=== PATIENT | male | born 1955 | race Caucasian/White ===

== ENCOUNTER → 2020-03-13 | Outpatient (CLI) | payer OTHER ==
[~2020-03-13] MED LIST: COVID-19 VACC, MRNA(MODERNA)/PF 100 MCG/0.5 ML VIAL IM ONE
== END ==
LOC: VACCPMC 08:00
DX: Z23 Encounter for immunization (principal); Z20.822 Contact with and (suspected) exposure to COVID-19

== ENCOUNTER → 2020-04-10 | Outpatient (CLI) | payer OTHER | END | DRG 951 | LOC: VACCPMC 08:41 | DX: Z23 Encounter for immunization (principal); Z20.822 Contact with and (suspected) exposure to COVID-19 | CPT/HCPCS: 0012A; 91301 ==

== ENCOUNTER 2021-05-28 13:20 | Emergency (ER) | payer OTHER ==
[~2021-05-28] VITALS: Ht 175.3 cm; Wt 93.0 kg
[2021-05-28] MEDS ORDERED: HYDROCODONE/APAP 5MG-325MG TAB PO PRN (14:15)
[2021-05-28] MEDS ORDERED: METHOCARBAMOL 750 MG TAB PO ONE (14:15)
[2021-05-28] MEDS ORDERED: PREDNISONE 20 MG TAB PO SCH (14:30)
[2021-05-28] MEDS ORDERED: ANAPROX DS550 MG PEG (15:07)
[2021-05-28] MEDS ORDERED: PREDNISONE50 MG PO (15:07)
[2021-05-28] MEDS ORDERED: METHOCARBAMOL750 MG PO (15:07)
== END 2021-05-28 15:15 | disposition home or self-care (01) ==
LOC: ER 13:45
DX: M54.41 Lumbago with sciatica, right side (principal); G89.29 Other chronic pain; R73.9 Hyperglycemia, unspecified; I10 Essential (primary) hypertension; E03.9 Hypothyroidism, unspecified; M10.9 Gout, unspecified
CPT/HCPCS: 36415; 72110; 82948; 99283; J7512

== ENCOUNTER 2021-07-10 05:59 | Observation (INO) | payer OTHER ==
[2021-07-08 09:21] LABS: BASOPHILS % 0.6 % (0.0-1.0); EOSINOPHILS % 1.2 % (0.0-6.0); HEMOGLOBIN 13.3 g/dL (14.0-18.0); LYMPHOCYTES # (AUTO) 0.7 (1.0-3.2); LYMPHOCYTES % 21.9 % (18.0-39.1); MEAN CORPUSCULAR HGB CONC 32.4 g/dL (31-35); MEAN CORPUSCULAR VOLUME 98.8 fL (81-99); MONOCYTES # (AUTO) 0.3 (0.2-0.8); MONOCYTES % 7.5 % (4.4-11.3); NEUTROPHILS # (AUTO) 2.3 (2.1-6.9); NEUTROPHILS % 68.5 % (38.7-80.0); PLATELET COUNT 120 x10e3/uL (140-360); RED BLOOD COUNT 4.15 x10e6/uL (4.3-5.7); RED CELL DISTRIBUTION WIDTH 14.1 % (11.7-14.4)
[2021-07-08 09:41] LABS: INR 0.95; PROTHROMBIN TIME 13.5 seconds (11.9-14.5)
[2021-07-08 09:51] LABS: ANION GAP 12.9 mmol/L (8-16); CALCIUM 10.6 mg/dL (8.4-10.2); CREATININE, SERUM 0.9 mg/dL (0.72-1.25); POTASSIUM 3.9 mmol/L (3.5-5.1)
[~2021-07-10] VITALS: Ht 177.8 cm; Wt 88.0 kg
[~2021-07-10 05:59] MED LIST changes: +ALLOPURINOL300 MG PO; +ANAPROX DS550 MG PEG; -COVID-19 VACC, MRNA(MODERNA)/PF 100 MCG/0.5 ML VIAL IM ONE; +DEXILANT60 MG PO; +FENTANYL CITRATE/PF 100MCG/2 ML INJ ONE; +LEVOTHYROXINE75 MCG PO; +METFORMIN HCL500 MG PO; +METHOCARBAMOL750 MG PO; +MIDAZOLAM HCL 2 MG/2 ML VIAL ONE; +PREDNISONE50 MG PO; +TESTIM5 GM TOP; +ZESTRIL10 MG PO
[2021-07-10] MEDS ORDERED: Vancomycin IV 1 GM VIAL ONE (07:27)
[2021-07-10] MEDS ORDERED: THROMBIN FOR SOLN 5,000 UNIT VIAL ONE (07:27)
[2021-07-10] MEDS ORDERED: LIDOCAINE 1% W/EPINEPHRINE 20 ML VIAL ONE (07:27)
[2021-07-10] MEDS ORDERED: MAGNESIUM/ALUMINUM/SIMETHICONE 30 ML UDC PO PRN (09:00)
[2021-07-10] MEDS ORDERED: ACETAMINOPHEN 325 MG TAB PO PRN (09:00)
[2021-07-10] MEDS ORDERED: PROMETHAZINE HCL (IM) 25 MG/ML VIAL IM PRN (09:00)
[2021-07-10] MEDS ORDERED: HYDROMORPHONE 2MG/ML 2 MG/ML ML IV PRN (09:00)
[2021-07-10] MEDS ORDERED: ZOLPIDEM TARTRATE 5 MG TAB PO PRN (09:00)
[2021-07-10] MEDS ORDERED: CEPACOL SORE THROAT LOZENGES PO PRN (09:00)
[2021-07-10] MEDS ORDERED: Morphine 4mg Syringe 4 MG/ML INJ IM PRN (09:00)
[2021-07-10] MEDS ORDERED: OXYCODONE/ACETAMINOPHEN 5-325 1 EACH TABLET PO PRN (09:00)
[2021-07-10] MEDS ORDERED: CARISOPRODOL 350 MG TAB PO PRN (09:00)
[2021-07-10] MEDS ORDERED: ONDANSETRON HCL INJ 2MG/ML 2ML 2 MG/ML VIAL IV PRN (09:00)
[2021-07-10] MEDS ORDERED: HYDROCODON-ACE1 EA12 PO (09:01)
[2021-07-10] MEDS ORDERED: FENTANYL CITRATE/PF 100MCG/2 ML INJ ONE (09:15)
[2021-07-10 10:45] VITALS: BP_SYST 100; BP_SYST 107; BP_DIAS 63; BP_DIAS 70
[2021-07-10 11:27] VITALS: BP 107/70
[2021-07-10 11:31] VITALS: BP 107/70
[2021-07-10] MEDS: LACTATED RINGER'S 1,000 ML IV SCH ×2 (12:29→19:20)
[2021-07-10] MEDS: ALLOPURINOL 300 MG TAB PO SCH (12:32)
[2021-07-10] MEDS ORDERED: ONDANSETRON HCL INJ 2MG/ML 2ML 2 MG/ML VIAL ONE (15:13)
[2021-07-10] MEDS ORDERED: SEVOFLURANE INHAL SOLN 250 ML PEN BTL ONE (15:13)
[2021-07-10] MEDS ORDERED: LIDOCAINE HCL 2% LOCAL INJ 5 ML SDV VIAL INJ ONE (15:13)
[2021-07-10] MEDS ORDERED: ROCURONIUM BROMIDE 10 MG/ML 5ML VIAL IV ONE (15:13)
[2021-07-10] MEDS ORDERED: KETOROLAC TROMETHAMINE 30 MG/ML VIAL ONE (15:13)
[2021-07-10] MEDS ORDERED: DEXAMETHASONE SOD PHOS INJ 4 MG/ML SDV ONE (15:13)
[2021-07-10] MEDS ORDERED: PROPOFOL IV EMULSION 10 MG/ML 20 ML VIAL ONE (15:13)
[2021-07-10] MEDS ORDERED: POVIDONE IODINE 0.05% 0.05 % ML PO ONE (15:13)
[2021-07-10 16:17] VITALS: BP 96/71
[2021-07-10] MEDS: METFORMIN HCL 500 MG TAB PO SCH (16:25)
[2021-07-10 20:00] VITALS: BP 126/76
[2021-07-10 20:40] VITALS: BP 126/76
[2021-07-11] VITALS: BP 97/71
[2021-07-11] MEDS: LACTATED RINGER'S 1,000 ML IV SCH (03:40)
[2021-07-11 04:00] VITALS: BP 120/77
[2021-07-11] MEDS ORDERED: LEVOTHYROXINE SODIUM 75 MCG TAB PO SCH (06:00)
[2021-07-11] MEDS ORDERED: PANTOPRAZOLE SOD 40 MG TABEC PO SCH (07:30)
[2021-07-11] MEDS: METFORMIN HCL 500 MG TAB PO SCH (08:00)
[2021-07-11 08:58] VITALS: BP 125/75
[2021-07-11] MEDS ORDERED: LISINOPRIL 10 MG TAB PO SCH (09:00)
[2021-07-11] MEDS: ALLOPURINOL 300 MG TAB PO SCH (09:00)
[2021-07-11 09:37] VITALS: BP 125/75
== END 2021-07-11 10:21 | disposition home or self-care (01) ==
LOC: OR 05:59 → PACU V 09:00 → MED/SURG 10:15
PROVIDERS: ADMIT Neurological Surgery; ATTEND Neurological Surgery
DX: M71.38 Other bursal cyst, other site (principal); M48.062 Spinal stenosis, lumbar region with neurogenic claudication; E11.9 Type 2 diabetes mellitus without complications; I10 Essential (primary) hypertension; Z79.84 Long term (current) use of oral hypoglycemic drugs; J45.909 Unspecified asthma, uncomplicated; E78.5 Hyperlipidemia, unspecified; E07.9 Disorder of thyroid, unspecified; Z90.49 Acquired absence of other specified parts of digestive tract; Z01.810 Encounter for preprocedural cardiovascular examination; Z01.812 Encounter for preprocedural laboratory examination; Z01.818 Encounter for other preprocedural examination; Z20.822 Contact with and (suspected) exposure to COVID-19
CPT/HCPCS: 36415 ×3; 63267; 69990; 71046; 72020; 80048; 82948 ×2; 85025; 85610; 85730; 86850; 86900; 88304; 93005; G0378 ×2; J0690 ×2; J1100; J1885; J2001; J2250; J2405; J2704; J3010 ×2; J3370; J7121; S0164; U0002